=== PATIENT | female | born 1960 | race Caucasian/White ===

== ENCOUNTER 2019-09-08 14:30 | Inpatient (IN) | payer OTHER, MEDICAID ==
[~2019-09-08] VITALS: Ht 162.5 cm; Wt 74.8 kg
[2019-09-08 14:36] VITALS: BP 141/76
[2019-09-08 14:58] LABS: BASO % 0.4 % (0.0-1.0); EOS # 0.1 10*3/uL (0.0-0.4); EOS % 0.7 % (1.0-4.0); HEMATOCRIT 44.3 % (37.0-47.0); LYMPH # 0.5 10*3/uL (1.3-4.4); LYMPH % 5.3 % (27.0-41.0); MEAN CELL VOLUME 92.1 fl (81.0-99.0); MEAN CORPUSCULAR HGB 28.3 pg (27.0-31.0); MEAN CORPUSCULAR HGB CONC 30.7 g/dl (33.0-37.0); MEAN PLATELET VOLUME 10.1 fl (9.6-12.3); MONO # 0.6 10*3/uL (0.1-1.0); MONO % 6.6 % (3.0-9.0); NEUT # 7.4 10*3/uL (2.3-7.9); NEUT % 86.3 % (47.0-73.0); PLATELET COUNT AUTOMATED 260 10*3/uL (130-400); RED BLOOD COUNT 4.81 10*6/uL (4.10-5.10); RED CELL DISTRI WIDTH 14.7 % (0-14.5); WHITE BLOOD COUNT 8.5 10*3/uL (4.8-10.8)
[2019-09-08 15:10] LABS: ACT PARTIAL THROMBO TIME 24.4 SECONDS (20.0-32.1)
[2019-09-08 15:25] LABS: ALBUMIN 3.4 gm/dl (3.1-4.5); CREATININE 1.17 mg/dL (0.55-1.02); POTASSIUM 3.5 mmol/L (3.5-5.1); TOTAL PROTEIN 6.9 gm/dL (6.4-8.2)
[2019-09-08 15:36] VITALS: BP 138/78
[2019-09-08 15:40] LABS: BILIRUBIN NEGATIVE (NEGATIVE); BLOOD 3+ (NEGATIVE); CLARITY SL CLOUDY (CLEAR); COLOR YELLOW (YELLOW); GLUCOSE NEGATIVE (NEGATIVE); KETONE NEGATIVE (NEGATIVE); LEUKO ESTERASE 3+ (NEGATIVE); NITRITE POSITIVE (NEGATIVE); UROBILINOGEN 0.2 E.U./dl (0.2-1.0)
[2019-09-08 15:47] LABS: BACTERIA 4+; RBC 0-2 rbc/hpf (0-2); WBC 16-20 wbc/hpf (0-5)
[2019-09-08] MEDS ORDERED: CEFUROXIME AXE500 MG PO (16:19)
[2019-09-08 17:22] VITALS: BP 143/88
[2019-09-08 17:23] VITALS: BP 143/88
[2019-09-08] MEDS ORDERED: ALBUTEROL SULFA10 GM INH (17:59)
[2019-09-08] MEDS ORDERED: ALBUTEROL2.5 MG/0.5 NEB (18:00)
[2019-09-08] MEDS ORDERED: ATIVAN IM (18:01)
[2019-09-08] MEDS ORDERED: BIOTENE MOIST44.3 ML PO (18:03)
[2019-09-08] MEDS ORDERED: BUMETANIDE1 MG PO (18:04)
[2019-09-08] MEDS ORDERED: CITALOPRAM20 MG PO (18:04)
[2019-09-08] MEDS ORDERED: CYCLOBENZAPRINE5 M3 PO (18:05)
[2019-09-08] MEDS ORDERED: CARDIZEM120 MG PO (18:09)
[2019-09-08] MEDS ORDERED: Ipratropium Brom3 ML INH (18:10)
[2019-09-08] MEDS ORDERED: HALDOL5 MG/1 ML IM (18:11)
[2019-09-08] MEDS ORDERED: MORPHINE S10 MG/0.2 PO (18:15)
[2019-09-08] MEDS ORDERED: MS CONTIN15 MG PO (18:16)
[2019-09-08] MEDS ORDERED: MUCINEX ER600 MG PO (18:17)
[2019-09-08] MEDS ORDERED: NORCO 7.5-3251 EACH PO (18:18)
[2019-09-08] MEDS ORDERED: PANTOPRAZOLE SO40 MG PO (18:19)
[2019-09-08] MEDS ORDERED: K-TAB20 MEQ PO (18:20)
[2019-09-08] MEDS ORDERED: PREDNISONE5 MG PO (18:21)
[2019-09-08] MEDS ORDERED: SEROQUEL XR150 MG PO (18:22)
[2019-09-08] MEDS ORDERED: SENNA8.6 MG PO (18:22)
[2019-09-08] MEDS ORDERED: SEROQUEL300 MG PO (18:23)
[2019-09-08] MEDS ORDERED: TRAZODONE50 MG PO (18:24)
[2019-09-08] MEDS ORDERED: SINGULAIR10 M1 PO (18:24)
[2019-09-08] MEDS ORDERED: TUMS300 MG PO (18:26)
[2019-09-08] MEDS ORDERED: XANAX1 MG PO (18:26)
[2019-09-08] MEDS ORDERED: XANAX2 M1 PO (18:31)
[2019-09-08 20:00] VITALS: BP 138/82
[2019-09-09 06:58] LABS: BASO % 0.3 % (0.0-1.0); EOS # 0.7 10*3/uL (0.0-0.4); EOS % 5.2 % (1.0-4.0); HEMATOCRIT 47.9 % (37.0-47.0); LYMPH # 1.1 10*3/uL (1.3-4.4); LYMPH % 8.3 % (27.0-41.0); MEAN CELL VOLUME 92.3 fl (81.0-99.0); MEAN CORPUSCULAR HGB 27.6 pg (27.0-31.0); MEAN CORPUSCULAR HGB CONC 29.9 g/dl (33.0-37.0); MEAN PLATELET VOLUME 10.7 fl (9.6-12.3); MONO # 1.1 10*3/uL (0.1-1.0); MONO % 8.3 % (3.0-9.0); NEUT # 10.2 10*3/uL (2.3-7.9); NEUT % 77.4 % (47.0-73.0); PLATELET COUNT AUTOMATED 311 10*3/uL (130-400); RED BLOOD COUNT 5.19 10*6/uL (4.10-5.10); RED CELL DISTRI WIDTH 14.9 % (0-14.5); WHITE BLOOD COUNT 13.2 10*3/uL (4.8-10.8)
[2019-09-09 07:26] LABS: CHLORIDE 90 mmol/L (98-107); POTASSIUM 2.7 mmol/L (3.5-5.1); SODIUM 137 mmol/L (136-145)
[2019-09-09 07:42] LABS: ALBUMIN 3.5 gm/dl (3.1-4.5); ALKALINE PHOSPHATASE 79 U/L (45-117); BUN 14 mg/dl (7-24); CHOLESTEROL 187 mg/dL (<200); CREATININE 1.08 mg/dL (0.55-1.02); HDL CHOLESTEROL 55 mg/dl (40-60); LDL CHOLESTEROL 103 mg/dL (9-159); SGOT/AST 22 IU/L (3-35); SGPT/ALT 30 U/L (12-78); TOTAL PROTEIN 6.8 gm/dL (6.4-8.2); TRIGLYCERIDES 146 mg/dl (<150); VLDL CHOLESTEROL 29 mg/dL (6-40)
[2019-09-09 07:59] VITALS: BP 112/61
[2019-09-09 08:10] LABS: VITAMIN D, 25-HYDROXY 9.2 ng/mL (30-100)
[2019-09-09 20:00] VITALS: BP 114/65
[2019-09-10 07:13] LABS: BUN 12 mg/dl (7-24); CHLORIDE 93 mmol/L (98-107); CREATININE 1.07 mg/dL (0.55-1.02); POTASSIUM 3.1 mmol/L (3.5-5.1); SODIUM 139 mmol/L (136-145)
[2019-09-10 07:23] VITALS: BP 151/71
[2019-09-10 20:00] VITALS: BP 135/75
[2019-09-11 07:05] LABS: BUN 15 mg/dl (7-24); CHLORIDE 101 mmol/L (98-107); CREATININE 0.92 mg/dL (0.55-1.02); POTASSIUM 3.7 mmol/L (3.5-5.1); SODIUM 140 mmol/L (136-145)
[2019-09-11 08:00] VITALS: BP 108/59
[2019-09-11 13:09] LABS: BASO % 0.2 % (0.0-1.0); EOS # 0.3 10*3/uL (0.0-0.4); EOS % 3.6 % (1.0-4.0); HEMATOCRIT 45.9 % (37.0-47.0); LYMPH # 0.5 10*3/uL (1.3-4.4); LYMPH % 5.5 % (27.0-41.0); MEAN CELL VOLUME 93.1 fl (81.0-99.0); MEAN CORPUSCULAR HGB 27.8 pg (27.0-31.0); MEAN CORPUSCULAR HGB CONC 29.8 g/dl (33.0-37.0); MONO # 0.4 10*3/uL (0.1-1.0); MONO % 4.3 % (3.0-9.0); NEUT # 7.7 10*3/uL (2.3-7.9); NEUT % 85.6 % (47.0-73.0); PLATELET COUNT AUTOMATED 319 10*3/uL (130-400); RED BLOOD COUNT 4.93 10*6/uL (4.10-5.10); RED CELL DISTRI WIDTH 14.9 % (0-14.5)
[2019-09-11 13:26] LABS: BUN 16 mg/dl (7-24); CHLORIDE 102 mmol/L (98-107); CREATININE 0.97 mg/dL (0.55-1.02); SODIUM 136 mmol/L (136-145)
[2019-09-11 13:27] LABS: POTASSIUM 4.8 mmol/L (3.5-5.1); TROPONIN I < 0.015 ng/ml (<0.045)
[2019-09-11 20:00] VITALS: BP 130/71
[2019-09-12 07:44] VITALS: BP 122/61
[2019-09-12 19:53] VITALS: BP 121/62
[2019-09-13 07:47] VITALS: BP 121/72
[2019-09-13 20:00] VITALS: BP 124/76
[2019-09-14 08:00] VITALS: BP 131/70
[2019-09-14 20:00] VITALS: BP 132/65
[2019-09-15 07:46] VITALS: BP 127/70
[2019-09-15 20:00] VITALS: BP 117/59
[2019-09-16 07:44] VITALS: BP 132/60
[2019-09-16] MEDS ORDERED: MIRTAZAPINE15 M2 PO (08:26)
[2019-09-16] MEDS ORDERED: PALIPERIDONE ER3 MG PO (08:26)
[2019-09-16] MEDS ORDERED: KLONOPIN2 M1 PO (08:26)
[2019-09-16] MEDS ORDERED: Vitamin D (50,000 UN PO (08:26)
[2019-09-16] MEDS ORDERED: CLONAZEPAM1 MG PO (08:26)
== END 2019-09-16 13:24 | disposition hospice, home (50) | DRG 885 ==
LOC: ED 14:30 → 3N 16:04
PROVIDERS: Family Medicine; Student in an Organized Health Care Education/Training Program; ADMIT Psychiatry & Neurology Psychiatry
DX: F33.3 Major depressive disorder, recurrent, severe with psychotic symptoms (principal); F23 Brief psychotic disorder; N39.0 Urinary tract infection, site not specified; E78.5 Hyperlipidemia, unspecified; F41.9 Anxiety disorder, unspecified; Z20.828 Contact with and (suspected) exposure to other viral communicable diseases; I25.10 Atherosclerotic heart disease of native coronary artery without angina pectoris; K21.9 Gastro-esophageal reflux disease without esophagitis; M05.20 Rheumatoid vasculitis with rheumatoid arthritis of unspecified site; Z79.899 Other long term (current) drug therapy; Z91.018 Allergy to other foods